=== PATIENT | female | born 1995 | race African-American/Black ===

== ENCOUNTER → 2020-01-16 15:01 | Outpatient (BNVA) | payer SELFPAY | PROVIDERS: PCP Pediatrics; Referring Provider Pediatrics; Visit Provider Hospitalist | DX: Z13.89 Encounter for screening for other disorder (principal) ==

== ENCOUNTER → 2021-12-04 15:17 | Outpatient (BNVA) | payer MEDICAID, SELFPAY | PROVIDERS: PCP Pediatrics; Visit Provider Hospitalist | DX: J44.9 Chronic obstructive pulmonary disease, unspecified (principal); J45.40 Moderate persistent asthma, uncomplicated; R13.11 Dysphagia, oral phase; J01.90 Acute sinusitis, unspecified; J98.4 Other disorders of lung; J40 Bronchitis, not specified as acute or chronic; Z91.89 Other specified personal risk factors, not elsewhere classified | CPT/HCPCS: 99212 ==

== ENCOUNTER 2022-02-25 13:30 | Outpatient (REF) | payer MEDICAID, SELFPAY ==
--- NOTE | ~2022-02-25 | XR_ITS ---
EXAMINATION: XR CHEST CLINICAL INFORMATION: Bronchitis COMPARISON: None TECHNIQUE: Frontal view of the chest was obtained. FINDINGS: Severe biconvex thoracolumbar scoliosis is present. Heart size normal. No infiltrates, effusions or lung masses are seen. Surgical clips are present at the GE junction XR/XR chest 1V IMPRESSION: No acute intrathoracic disease.
== END 2022-02-25 13:31 | disposition home or self-care (01) ==
LOC: HO.HMGCX 13:30
PROVIDERS: Visit Provider Hospitalist
DX: J40 Bronchitis, not specified as acute or chronic (principal)
CPT/HCPCS: 71045

== ENCOUNTER 2023-02-23 14:17 | Outpatient (AMB) | payer MEDICAID, SELFPAY ==
[2023-02-23 14:18] VITALS: BMI 16.8
--- NOTE | 2023-02-23 14:18 | MHC.OFFVIS ---
Intake Vital Signs 02/23/23 14:18 Height 5 ft 1 in Weight 89 lb BMI 16.8 Intake Visit Reasons: Asthma Senior Research Associate Required: No Allergies amoxicillin Allergy (Severe, Verified 02/23/23 14:18) Rash and Hives HPI HPI Comments History of Present Illness Details The patient is a 26-year-old woman with mental retardation. The patient is nonverbal therefore I spoke with her mother. She does have a history of asthma in addition to dysphagia with some aspiration. Due to her aspiration risks she has responded to the chlorhexidine mouthwash. She does have twice a day. In addition to that we maintain her secretions done with the use Robinul. She continues using Singulair for allergies. However, has been known is that she has been sneezing we. Therefore will be reasonable to increase the to the 10mg dose. 12/04/2021 the patient is here for sick visit. She has had significant nasal congestion and postnasal drip. She has been having hard time breathing because the nasal congestion and also episodes of snorting in having more snoring. She has been having hard time with secretions the family is doing everything possible in view of her the dictations to try to help her with that. Do a cough assist device that the use although the patient cannot protect her airway in does have significant dysphagia and aspiration resulting worsening symptoms. The chlorhexidine mouthwash as help with minimizing vaccines. The patient however does not have a subcu available to provide airway clearance. Will request 1 from with the [email or web address]. She has also been using the nebulizer with bronchodilation. Although with her significant congestion she will benefit from budesonide nebulized therapy as well. Will send those to the pharmacy in order for her to start them as well as possible. If the patient is no better she may need to go on some prednisone. The meantime the patient was started on doxycycline which she is currently taking and she did complete a course of prednisone. The patient will need to get a new nebulizer will also request from from her [employer] company. 02/23/2023 the patient has a telehealth visit today. I am speaking to her mom. The patient is nonverbal. the patient has been doing well at home. She has avoided viral infections. The family has been sick in the house so but the been able to quarantine her. She continues using all her respiratory therapy. Although she is not using the budesonide any longer. Will hold off on at this time. But if the patient will need again she can always call and will send it to the pharmacy. Unfortunately she has not been getting supplies for her suction machine and she also has not been getting her aero mask for her nebulizer kit. Therefore, we will request the supplies from her [employer] company at this time. If she does not hear back from [employer] in the next week or 2 she should call the office so we can call them and figure out the status of her supplies. she otherwise continues her current respiratory therapy. Will follow-up in 6 months. [facility] Medical History (Updated 12/04/21 @ 22:59 by Herbert Villegas MD) Bronchitis Sinusitis At risk for aspiration Asthma Dysphagia Social History (Updated 12/04/21 @ 15:35 by DARLIN Garibay) Patient Tobacco Use Status: Never used Tobacco Review of Systems Const Unobtainable due to mental condition Physical Exam Vital Signs: BMI result Body Mass Index 16.8 Const Orientation/consciousness: No patient oriented x3 Limitations: physical limitations and other limitations (non verbal) Neck Neck: Yes trachea midline Neuro General: No patient oriented x3 Assessment & Plan Assessment & Plan (1) Dysphagia: Code(s): R13.10 - Dysphagia, unspecified Qualifiers: Dysphagia type: oral phase Qualified Code(s): R13.11 - Dysphagia, oral phase (2) Asthma: Code(s): J45.909 - Unspecified asthma, uncomplicated Qualifiers: Asthma complication type: uncomplicated Asthma persistence: persistent Asthma severity: moderate Qualified Code(s): J45.40 - Moderate persistent asthma, uncomplicated (3) At risk for aspiration: Code(s): Z91.89 - Other specified personal risk factors, not elsewhere classified (4) Chronic restrictive lung disease: Code(s): J98.4 - Other disorders of lung Plan stop budesonide nebs BID Fluticasone nasal spray Cough assist device Needs a suction machine supplies Needs nebulizer supplpies with aeromask (not able to claude mouth piece) F/U 6 months Medications: Changed From levalbuterol HCl (Xopenex) 1.25 mg (3 mL) inhalation QID 30 days PRN 360 mL 6RF shortness of breath or wheezing J44.9 - Chronic obstructive pulmonary disease, unspecified To levalbuterol HCl 1.25 mg (3 mL) inhalation QID 30 days PRN 360 mL 6RF shortness of breath or wheezing J44.9 - Chronic obstructive pulmonary disease, unspecified Refilled prednisone PO daily; Take 6 tabs daily x 3 days, then 5 tabs x 3 days, then 4 tabs x 3 days, then 3 tabs x 3 days, then 2 tabs daily x 3 days, then 1 tab x 3 days to complete. 18 days 63 tabs 0RF Telehealth Telehealth Location of provider rendering services: practice address Location of patient: address on file Patient Identification confirmed using: Name, : Yes Telehealth method: voice only Patient verbally consented to treatment: Yes Patient verbally consented to billing insurance company: Yes Patient informed of any privacy concerns related to visit: Yes Coding Level of Care Code Tele Est Pt Level 4 (20026) Diagnoses Oral phase dysphagia R13.11 Dysphagia type: oral phase Moderate persistent asthma without complication J45.40 Asthma complication type: uncomplicated Asthma persistence: persistent Asthma severity: moderate At risk for aspiration Z91.89 Chronic restrictive lung disease J98.4 Time Spent (min) 15
== END 2023-02-23 14:31 | disposition home or self-care (01) ==
LOC: HO.HPS 14:17
PROVIDERS: PCP Internal Medicine; Visit Provider Hospitalist
DX: R13.11 Dysphagia, oral phase (principal); J45.40 Moderate persistent asthma, uncomplicated; Z91.89 Other specified personal risk factors, not elsewhere classified; J98.4 Other disorders of lung
CPT/HCPCS: 99213

== ENCOUNTER → 2023-02-23 14:17 | Outpatient (BNVA) | payer MEDICAID, SELFPAY | PROVIDERS: PCP Internal Medicine; Visit Provider Hospitalist ==

== ENCOUNTER 2023-08-24 15:32 | Outpatient (AMB) | payer MEDICAID, SELFPAY ==
[2023-08-24 15:32] VITALS: BMI 17.0
--- NOTE | 2023-08-24 15:32 | MHC.OFFVIS ---
Vital Signs 08/24/23 15:32 Height 5 ft 1 in Weight 90 lb BMI 17.0 Intake Visit Reasons: Asthma follow-up School Traffic Supervisor Required: No Allergies amoxicillin Allergy (Severe, Verified 08/24/23 15:33) Rash and Hives HPI Comments Details: The patient is a 27-year-old woman with mental retardation. The patient is nonverbal therefore I spoke with her mother. She does have a history of asthma in addition to dysphagia with some aspiration. Due to her aspiration risks she has responded to the chlorhexidine mouthwash. She does have twice a day. In addition to that we maintain her secretions done with the use Robinul. She continues using Singulair for allergies. However, has been known is that she has been sneezing we. Therefore will be reasonable to increase the to the 10mg dose. 08/24/2023 I am speaking to her mom. The patient is nonverbal. the patient has been doing well at home. She has avoided viral infections. The family has been sick in the house so but the been able to quarantine her. She continues using all her respiratory therapy. Although she is not using the budesonide any longer. Will hold off on at this time. But if the patient will need again she can always call and will send it to the pharmacy. Unfortunately she has not been getting supplies for her suction machine and she also has not been getting her aero mask for her nebulizer kit. Therefore, we will request the supplies from her [employer] company at this time. If she does not hear back from [employer] in the next week or 2 she should call the office so we can call them and figure out the status of her supplies. she otherwise continues her current respiratory therapy. Will follow-up in 6 months. [facility] Medical History (Updated 12/04/21 @ 22:59 by Herbert Villegas MD) Bronchitis Sinusitis At risk for aspiration Asthma Dysphagia Social History (Updated 12/04/21 @ 15:35 by DARLIN Garibay) Patient Tobacco Use Status: Never used Tobacco Review of Systems Const Unobtainable due to mental condition Physical Exam Vital Signs: BMI result Body Mass Index 17.0 Const Orientation/consciousness: No patient oriented x3 Limitations: physical limitations and other limitations (non verbal) Neuro General: No patient oriented x3 Assessment & Plan Assessment & Plan (1) Asthma: Code(s): J45.909 - Unspecified asthma, uncomplicated Category: Medical Qualifiers: Asthma complication type: uncomplicated Asthma persistence: persistent Asthma severity: moderate Qualified Code(s): J45.40 - Moderate persistent asthma, uncomplicated (2) Dysphagia: Code(s): R13.10 - Dysphagia, unspecified Category: Medical Qualifiers: Dysphagia type: oral phase Qualified Code(s): R13.11 - Dysphagia, oral phase (3) At risk for aspiration: Code(s): Z91.89 - Other specified personal risk factors, not elsewhere classified Category: Medical (4) Chronic restrictive lung disease: Code(s): J98.4 - Other disorders of lung Category: Medical Plan Fluticasone nasal spray Cough assist device Needs a suction machine supplies continue singulair Needs nebulizer supplpies with aeromask (not able to claude mouth piece) F/U 6 months Medications: Changed From montelukast 10 mg PO DAILY 30 tabs 1RF J45.909 - Unspecified asthma, uncomplicated To montelukast 10 mg PO DAILY 90 tabs 3RF 90 days J45.909 - Unspecified asthma, uncomplicated Refilled prednisone PO daily; Take 6 tabs daily x 3 days, then 5 tabs x 3 days, then 4 tabs x 3 days, then 3 tabs x 3 days, then 2 tabs daily x 3 days, then 1 tab x 3 days to complete. 63 tabs 0RF 18 days Coding Level of Care Code Tele Est Pt Level 4 (89066) Diagnoses Moderate persistent asthma without complication J45.40 Asthma complication type: uncomplicated Asthma persistence: persistent Asthma severity: moderate Oral phase dysphagia R13.11 Dysphagia type: oral phase At risk for aspiration Z91.89 Chronic restrictive lung disease J98.4 Time Spent (min) 14
== END 2023-08-25 08:51 | disposition home or self-care (01) ==
LOC: HO.HPS 15:32
PROVIDERS: PCP Registered Nurse; Visit Provider Hospitalist
DX: J45.40 Moderate persistent asthma, uncomplicated (principal); R13.11 Dysphagia, oral phase; J98.4 Other disorders of lung
CPT/HCPCS: 99214

== ENCOUNTER → 2023-08-24 15:32 | Outpatient (BNVA) | payer MEDICAID, SELFPAY | PROVIDERS: PCP Registered Nurse; Visit Provider Hospitalist ==

== ENCOUNTER 2023-12-19 23:28 | Emergency (ER) | payer MEDICAID, SELFPAY ==
--- NOTE | ~2023-12-19 | XR_ITS ---
EXAMINATION: XR CHEST CLINICAL INFORMATION: Cough. Congestion. COMPARISON: Chest radiograph 12/16/2022. TECHNIQUE: Two frontal view of the chest was obtained. FINDINGS: Images are suboptimal secondary to portions of the right upper extremity overlying the thorax. Marked convex rightward scoliosis of the thoracolumbar spine is present. Cardiac silhouette is grossly normal in size. No gross effusions or pneumothoraces identified. No focal pulmonary consolidation identified. Multiple surgical clips are again projected over the left upper abdominal quadrant. XR/XR chest 1V IMPRESSION: *Technically suboptimal examination of the thorax secondary to the right upper extremity projected over the chest. *No acute cardiopulmonary abnormalities identified. *Marked thoracolumbar dextroscoliosis. Electronically signed by: Niles Ramos MD 12/20/2023 12:24 AM JOHN ORELLANA
[2023-12-19 23:30] VITALS: BP 150/99; PULSE 97; RESP 22; TEMP 36.5; O2SAT 96; BMI 18.6
--- NOTE | 2023-12-20 00:38 | ED_ITS ---
HPI - URI/Sore Throat General Chief Complaint: Upper Respiratory Symptoms Stated Complaint: Upper Resp Time Seen by Provider: 12/20/23 00:37 History of Present Illness ED Provider: ENRRIQUE LONG MD HPI Narrative: 28-YEAR-OLD FEMALE UNDERLYING CP CHRONIC RECURRENT RESPIRATORY INFECTIONS. MOTHER WHO IS A RN REPORTS LOW HOME O2 SATS 89-92%. MOTHER HAS GIVEN PREDNISONE DOSE DOXYCYCLINE XOPENEX. SAT IN TRIAGE 95-96% ON ROOM AIR. Mother started the medication on , 4 days ago has noted improvement in the breathing particularly respiratory rate and less use of accessory muscles. Prior to arrival tonight patient took zolpidem mother thought the upper airway noises and subtle respiratory distress prior to bringing her here may have been secondary to some sedation from the zolpidem. No noted fever Related Data Home Medications ?Medication ?Instructions ?Recorded ?Confirmed baclofen 20 mg tablet 20 mg PO DAILY 01/16/20 01/16/20 lamotrigine 150 mg tablet 150 mg PO BID 01/16/20 01/16/20 levetiracetam 1,000 mg tablet 1,500 mg PO BID 01/16/20 01/16/20 (Keppra) lorazepam 0.5 mg tablet 0.5 mg PO DAILY PRN 01/16/20 01/16/20 multivitamin 1 tab PO DAILY 01/16/20 01/16/20 omeprazole 20 mg capsule,delayed 20 mg PO DAILY 01/16/20 01/16/20 release rufinamide 400 mg tablet 800 mg PO BID 01/16/20 01/16/20 Previous Rx's ?Medication ?Instructions ?Recorded [facility] System Monthly Supplies #1 units 04/03/20 chlorhexidine gluconate 0.12 % 15 ml PO BID #946 mL 03/18/21 mouthwash budesonide 0.5 mg/2 mL suspension 0.5 mg (2 mL) inhalation BID 30 12/04/21 for nebulization days #120 mL montelukast 5 mg chewable tablet 5 mg PO BEDTIME #90 tabs 12/09/21 levofloxacin 250 mg/10 mL oral 500 mg (20 mL) PO DAILY 7 days 02/25/22 solution #140 mL glycopyrrolate 1 mg tablet 1 mg PO TID #90 tabs 11/30/22 levalbuterol HCl 1.25 mg/3 mL 1.25 mg (3 mL) inhalation QID PRN 02/23/23 solution for nebulization shortness of breath or wheezing 30 days #360 mL montelukast 10 mg tablet 10 mg PO DAILY 90 days #90 tabs 08/24/23 prednisone 10 mg tablet See Rx Instructions PO DAILY 18 08/24/23 days #63 tabs Allergies Allergy/AdvReac Type Severity Reaction Status Date / Time amoxicillin Allergy Severe Rash and Verified 12/19/23 23:30 Hives [facility] Past Medical History Medical History (Updated 12/20/23 @ 01:14 by Enrrique Long MD) Bronchitis Sinusitis At risk for aspiration Asthma Dysphagia Social History Social History (Updated 12/04/21 @ 15:35 by DARLIN Garibay) Patient Tobacco Use Status: Never used Tobacco Smoked in Last 30 Days: No Use of substances other than those prescribed or required for medical reasons: No Advance Directives: No Advance Directives Information Provided: Yes Do you have a plan to hurt others: No Plan Physical Exam Vital Signs: Vital Signs: Last Vital Signs Temp 97.7 F 12/20/23 01:42 Pulse 97 12/20/23 01:42 Resp 22 H 12/20/23 01:42 BP 150/99 H 12/20/23 01:42 Pulse Ox 96 12/20/23 01:42 O2 Del Method Nasal Cannula 12/20/23 01:42 BMI result Body Mass Index 18.6 Const: Other: EXAM: Gen: Alert, THIN, CONTRACTED, AUDIBLE UPPER AIRWAY SECRETIONS Head: Atraumatic Eyes: Anicteric, Normal conjunctiva. ENT: Moist mucosa, no pallor. ? Neck: Supple. Respiratory: No overt respiratory distress or accessory muscle use. Respiratory rate proximally 22-24. Transmitted upper airway noises. Oral secretions audible. No stridor. Vital signs: See flowsheet Medical Decision Making Medical Decision Making MDM Narrative: [age] female with CP chronic recurrent respiratory issues on doxy and prednisone since , 4 days, with hypoxemia and the transient but im proving respiratory symptoms at home. Limited rotated obscured x-ray with no overt signs of pulmonary infiltrate. Patient is afebrile here saturating mid 90s without significant distress. Lab Data Labs: Lab Results 12/20/23 Range/Units 00:31 Influenza Type A (PCR) NEGATIVE (Negative) Influenza Type B (PCR) NEGATIVE (Negative) RSV RNA Qual (PCR) NEGATIVE (Negative) SARS-CoV-2 RNA (RT-PCR) NEGATIVE (Negative) Independent Interpretation I performed an independent interpretation of an: Plain X-Ray and Ultrasound Interpretation: Limited due to rotation obstruction with right upper extremity visible portions of the lung no infiltrate EMERGENCY ULTRASOUND INTERPRETATION-Limited THORACIC [This study was ordered, performed, and interpreted by myself. The study revea ls: Impression:NO PATHOLOGIC B LINES OR PULMONARY EFFUSION/CONSOLIDATION [Emergent Cardiac for Indication: DYSPNEA Views Used: 6 VIEWS KAYLEIGH CHEST THORAC: NO FOCAL CONSOLIDATION, NO PATHOLOGIC B LINES, NO EFFUSION Performed by: MD Mercedes Images were stored on EMR through [email or web address] image archive software. CPT:44010] Discharge Plan Discharge Clinical Impression: Aspiration into airway Patient Disposition: Home, Self-Care Instructions: Aspiration Precautions (ED) Additional Instructions: DISCHARGE DIAGNOSES: Suspected aspiration into the lungs verses zolpidem induced sedation transient respiratory distress HISTORY OF PRESENTATION: Transient hypoxia at home. EMERGENCY DEPARTMENT COURSE,TESTS, TREATMENTS: While in the ED today Radha had a limited x-ray performed with no obvious signs of pneumonia. We also performed an ultrasound of the chest. You declined lab work which we feel is reasonable. Her O2 sat is 95-96% on room air at triage and she had no favor DISCHARGE MEDICATIONS: ?[We have made no changes to your regular medication regimen] FOLLOW-UP: ?Call your primary or general physician soon as possible to discuss your symptoms, your ED visit and to discuss follow up plans INSTRUCTIONS ?& RETURN PRECAUTIONS: If any symptoms change first call your primary physician, if it is after-hours your primary doctors office should have a provider denier control operator you can speak with. If the symptoms are severe or very concerning to you then call 911 or return to the ED. Enrrique Long MD Emergency Physician [facility] Prescriptions: No Action (DME) VitalCough System Monthly Supplies See Rx Instructions .Route .MEDSUPPLY Qty: 1 12RF Rx Instructions: Protocol for VitalCough System, 2 treatments per day, +20cm of H2O inhale pressure, -20cm H2O exhale pressure, 4 breaths, 4 cycles chlorhexidine gluconate 0.12 % mouthwash 15 ml PO BID Qty: 946 1RF montelukast 5 mg tablet,chewable 5 mg PO BEDTIME Qty: 90 0RF levofloxacin 250 mg/10 mL solution 500 mg PO DAILY 7 Days Qty: 140 0RF glycopyrrolate 1 mg tablet 1 mg PO TID Qty: 90 0RF rufinamide 400 mg tablet 800 mg PO BID Rx Instructions: give with meal/snack baclofen 20 mg tablet 20 mg PO DAILY lamotrigine 150 mg tablet 150 mg PO BID levetiracetam [Keppra] 1,000 mg tablet 1,500 mg PO BID omeprazole 20 mg capsule,delayed release(DR/EC) 20 mg PO DAILY multivitamin Tablet 1 tab PO DAILY lorazepam 0.5 mg tablet 0.5 mg PO DAILY PRN budesonide 0.5 mg/2 mL suspension for nebulization 0.5 mg inhalation BID 30 Days Qty: 120 11RF levalbuterol HCl 1.25 mg/3 mL solution for nebulization 1.25 mg inhalation QID PRN (Reason: shortness of breath or wheezing) 30 Days Qty: 360 6RF prednisone 10 mg tablet See Rx Instructions PO DAILY 18 Days Qty: 63 0RF Rx Instructions: PO daily; Take 6 tabs daily x 3 days, then 5 tabs x 3 days, then 4 tabs x 3 days, then 3 tabs x 3 days, then 2 tabs daily x 3 days, then 1 tab x 3 days to complete. montelukast 10 mg tablet 10 mg PO DAILY 90 Days Qty: 90 3RF Interventions: ED Discharge Assessment Last Done: 12/20/23 01:42 Discharge Date/Time: 12/20/23 01:43 Print Language: Lao
[2023-12-20 01:12] LABS: Influenza A PCR NEGATIVE (Negative); Influenza B PCR NEGATIVE (Negative); Resp Syncy Virus RNA Qual PCR NEGATIVE (Negative); SARS COV2 PCR INHOUSE NEGATIVE (Negative)
--- NOTE | 2023-12-20 01:39 | PC.NURSE ---
pt remaining in wheelchair on arrival per mother request. Pt with no obvious respiratory distress at this time.
[2023-12-20 01:42] VITALS: BP 150/99; PULSE 97; RESP 22; TEMP 36.5; O2SAT 96
== END 2023-12-20 01:43 | disposition home or self-care (01) ==
PROVIDERS: Emergency Provider Emergency Medicine; PCP Registered Nurse
DX: R09.02 Hypoxemia (principal); R05.9 Cough, unspecified; R07.9 Chest pain, unspecified; Z03.818 Encounter for observation for suspected exposure to other biological agents ruled out; Z79.899 Other long term (current) drug therapy
CPT/HCPCS: 0241U; 71045; 99283; 99284

== ENCOUNTER 2023-12-24 13:08 | Outpatient (AMB) | payer MEDICAID, SELFPAY ==
--- NOTE | 2023-12-24 13:21 | A.OFFVIS_ITS ---
Vital Signs 12/24/23 13:27 Height 5 ft 1 in Weight 90 lb BMI 17.0 Pulse 103 H Pulse Source Doppler Pulse Oximetry (%) 96 Oxygen Delivery Method Room Air Intake Visit Reasons: Shortness of Breath/Cough/Dr. Villegas PT Intake Note: Wheelchair bound/ unable to obtain BP Allergies amoxicillin Allergy (Severe, Verified 12/19/23 23:30) Rash and Hives HPI HPI Shortness of Breath/Cough/Dr. Villegas PT: Details: 28-year-old lady with underlying developmental delay and asthma with prior episodes of aspiration, usually followed by Dr. Villegas, now presents complaining approximately 1 week history of cough and sputum production that started with what appears to have been an aspiration event. She was empirically treated with a doxycycline and prednisone with no significant improvement. [facility] Medical History (Updated 12/24/23 @ 14:10 by Jim Box MD) Bronchitis Sinusitis At risk for aspiration Asthma Dysphagia Social History (Updated 12/04/21 @ 15:35 by Maribel Souza Elsy) Patient Tobacco Use Status: Never used Tobacco Review of Systems Resp Reports cough, Reports excessive phlegm production and Reports other (Rales) Physical Exam Vital Signs: Last Vital Signs Pulse 103 H 12/24/23 13:27 Pulse Ox 96 12/24/23 13:27 Oxygen Delivery Method Room Air 12/24/23 13:27 BMI result Body Mass Index 17.0 Const General: awake Resp Effort & Inspection: normal respiratory effort Auscultation: rales (Bilateral) Cardio Rate: tachycardic Rhythm: regular rhythm Heart sounds: no murmurs Assessment & Plan Assessment & Plan (1) Pulmonary aspiration: Code(s): T17.900A - Unspecified foreign body in respiratory tract, part unspecified causing asphyxiation, initial encounter Category: Medical Plan: Appears to have had another aspiration event with residual pneumonitis versus pneumonia. Will treat with a course of Levaquin. Medications: Refilled levofloxacin 500 mg (20 mL) PO DAILY 140 mL 0RF 7 days Coding Level of Care Code Est Pt Level 3 (02258) Complex EM visit Add On G2211 Diagnoses Pulmonary aspiration T17.900A
[2023-12-24 13:27] VITALS: PULSE 103; O2SAT 96; BMI 17.0
== END 2023-12-24 13:47 | disposition home or self-care (01) ==
PROVIDERS: PCP Registered Nurse; Visit Provider Internal Medicine Pulmonary Disease
DX: T17.900A Unspecified foreign body in respiratory tract, part unspecified causing asphyxiation, initial encounter (principal)
CPT/HCPCS: 99213

== ENCOUNTER → 2023-12-24 13:08 | Outpatient (BNVA) | payer MEDICAID, SELFPAY | PROVIDERS: PCP Registered Nurse; Visit Provider Internal Medicine Pulmonary Disease | DX: T17.900A Unspecified foreign body in respiratory tract, part unspecified causing asphyxiation, initial encounter (principal) | CPT/HCPCS: 99212 ==

== ENCOUNTER 2023-12-31 13:06 | Outpatient (AMB) | payer MEDICAID, SELFPAY ==
[2023-12-31 13:14] VITALS: PULSE 104; O2SAT 97
--- NOTE | 2023-12-31 13:14 | MHC.OFFVIS ---
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 The patient is nonverbal therefore I spoke with her mother. She does have a history of asthma in addition to dysphagia with some aspiration. Due to her aspiration risks she has responded to the chlorhexidine mouthwash. She does have twice a day. In addition to that we maintain her secretions done with the use Robinul. She continues using Singulair for allergies. However, has been known is that she has been sneezing we. Therefore will be reasonable to increase the to the 10mg dose. 08/24/2023 I am speaking to her mom. The patient is nonverbal. the patient has been doing well at home. She has avoided viral infections. The family has been sick in the house so but the been able to quarantine her. She continues using all her respiratory therapy. Although she is not using the budesonide any longer. Will hold off on at this time. But if the patient will need again she can always call and will send it to the pharmacy. Unfortunately she has not been getting supplies for her suction machine and she also has not been getting her aero mask for her nebulizer kit. Therefore, we will request the supplies from her [employer] company at this time. If she does not hear back from Gerald in the next week or 2 she should call the office so we can call them and figure out the status of her supplies. she otherwise continues her current respiratory therapy. Will follow-up in 6 months. 12/31/2023 the patient is here for a sick visit. Apparently she started developing worsening respiratory symptoms beginning of the month. She went to urgent care. There she had an x-ray which was limited. She was treated and released. Her symptoms are no better significant congestion episodes of hypoxia. The patient brought to the office. She was evaluated. She was started on Levaquin and she had completed a course of steroids. Which point she did feel better but still congested. Then her primary care doctor center another course of prednisone 50 mg for 5 days. Now she has a taper. She started to feel better after the additional prednisone. She does need help with her chest congestion. The patient does have significant physical limitation and also limited cognition. Therefore a percussion wrap will help her loosen up the mucus to clear her secretions to minimize infection. Will request a percussion device from her [employer] company to help with secretions. In addition to that she has a suction machine. For some reason she is not getting supplies from her [employer] company. Does become a big issue. I am going to have to give him another call to make sure that they give her the adequate supplies for her suction machine. In addition to that the patient has been irritable. Likely from the prednisone. Will have her get blood work including a venous gas to assess her CO2. In addition to other blood work. [facility] Medical History (Updated 12/24/23 @ 14:10 by Jim Box MD) Bronchitis Sinusitis At risk for aspiration Asthma Dysphagia Social History (Updated 12/04/21 @ 15:35 by DARLIN Garibay) Patient Tobacco Use Status: Never used Tobacco Review of Systems Const Unobtainable due to mental condition Physical Exam Vital Signs: Last Vital Signs Pulse 104 H 12/31/23 13:14 Pulse Ox 97 12/31/23 13:14 Oxygen Delivery Method Room Air 12/31/23 13:14 Const Orientation/consciousness: No patient oriented x3 Limitations: physical limitations and other limitations (non verbal) Neuro General: No patient oriented x3 Assessment & Plan Assessment & Plan (1) Asthma: Code(s): J45.909 - Unspecified asthma, uncomplicated Category: Medical Qualifiers: Asthma complication type: uncomplicated Asthma persistence: persistent Asthma severity: moderate Qualified Code(s): J45.40 - Moderate persistent asthma, uncomplicated (2) Dysphagia: Code(s): R13.10 - Dysphagia, unspecified Category: Medical Qualifiers: Dysphagia type: oral phase Qualified Code(s): R13.11 - Dysphagia, oral phase (3) At risk for aspiration: Code(s): Z91.89 - Other specified personal risk factors, not elsewhere classified Category: Medical (4) Chronic restrictive lung disease: Code(s): J98.4 - Other disorders of lung Category: Medical Plan Fluticasone nasal spray start hypertonic saline 3% BID nebs for CPT requesting percussion wrap to her her with her secretions with her recurrent infections. Should use while using the nebulizer Needs a suction machine supplies continue singulair Needs nebulizer supplpies with aeromask (not able to claude mouth piece) bloodwork F/U 6 months Orders: Orders Venous Blood Gas 12/31/23 J98.4 - Other disorders of lung, T17.900A - Unspecified foreign body in respiratory tract, part unspecified causing asphyxiation, initial encounter Immunoglobulins,IgG IgA IgM 12/31/23 J98.4 - Other disorders of lung, T17.900A - Unspecified foreign body in respiratory tract, part unspecified causing asphyxiation, initial encounter Erythrocyte Sedimentation Rate 12/31/23 J98.4 - Other disorders of lung, T17.900A - Unspecified foreign body in respiratory tract, part unspecified causing asphyxiation, initial encounter Overnight Pulse Oximetry 12/31/23 J98.4 - Other disorders of lung, T17.900A - Unspecified foreign body in respiratory tract, part unspecified causing asphyxiation, initial encounter Immunoglobulin G Subclasses 12/31/23 J98.4 - Other disorders of lung, T17.900A - Unspecified foreign body in respiratory tract, part unspecified causing asphyxiation, initial encounter Immunoglobulin E 12/31/23 J98.4 - Other disorders of lung, T17.900A - Unspecified foreign body in respiratory tract, part unspecified causing asphyxiation, initial encounter Complete Blood Count Auto Diff 12/31/23 J98.4 - Other disorders of lung, T17.900A - Unspecified foreign body in respiratory tract, part unspecified causing asphyxiation, initial encounter Medications: New sodium chloride 3% 4 mL inhalation BID 30 days 240 mL 11RF levofloxacin 500 mg PO DAILY 14 days 14 tabs 1RF Refilled prednisone PO daily; Take 6 tabs daily x 3 days, then 5 tabs x 3 days, then 4 tabs x 3 days, then 3 tabs x 3 days, then 2 tabs daily x 3 days, then 1 tab x 3 days to complete. 18 days 63 tabs 1RF Coding Level of Care Code Est Pt Level 4 (75095) Complex EM visit Add On G2211 Diagnoses Moderate persistent asthma without complication J45.40 Asthma complication type: uncomplicated Asthma persistence: persistent Asthma severity: moderate Oral phase dysphagia R13.11 Dysphagia type: oral phase At risk for aspiration Z91.89 Chronic restrictive lung disease J98.4 Time Spent (min) 16
== END 2023-12-31 14:01 | disposition home or self-care (01) ==
PROVIDERS: PCP Registered Nurse; Visit Provider Hospitalist
DX: J45.40 Moderate persistent asthma, uncomplicated (principal); R13.11 Dysphagia, oral phase; Z91.89 Other specified personal risk factors, not elsewhere classified; J98.4 Other disorders of lung
CPT/HCPCS: 99214

== ENCOUNTER 2023-12-31 13:06 | Outpatient (REF) | payer MEDICAID, SELFPAY ==
[2023-12-31 14:08] LABS: Venous Blood Gas Refer to POC result
[2023-12-31 14:16] LABS: VBG Base Excess 1.1 mmol/L; VBG HCO3 25 mmol/L (22-26); VBG pCO2 39 mmHg; VBG pH 7.41 (7.32-7.43); VBG pO2 71 mmHg
[2023-12-31 14:51] LABS: Basophils Percent Auto 0.4 % (0-2); Eosinophils Absolute Auto 0.1 X10*3/uL (0.0-0.4); Eosinophils Percent Auto 1.3 % (0-4); Hemoglobin 14.1 g/dl (12.0-16.0); Imm Gran Abs Auto 0.02 X10*3/uL (0.00-0.03); Imm Gran Pct Auto 0.3 % (0.0-0.4); Lymphocytes Absolute Auto 4.8 X10*3/uL (1.2-4.9); Lymphocytes Percent Auto 60.7 % (20-40); MANUAL DIFF FLAG SCAN; Mean Corpuscular Hemoglobin 23.3 pg (27.0-33.0); Mean Corpuscular Volume 72.6 fL (80.0-98.0); Mean Platelet Volume 9.1 fL (9.4-12.3); Monocytes Absolute Auto 0.5 X10*3/uL (0.1-1.2); Monocytes Percent Auto 6.4 % (2-11); Neutrophils Absolute Auto 2.4 x10*3/uL (2.0-8.3); Neutrophils Percent Auto 30.9 % (45-73); Platelet Count 518 X10*3/uL (160-400); Red Blood Count 6.06 X10*6/uL (4.20-5.50); Red Cell Distribution Width 14.9 % (11.0-16.0); SCAN SMEAR FLAG 1; White Blood Count 7.8 X10*3/uL (4.8-10.8)
[2023-12-31 15:30] LABS: Erythrocyte Sedimentation Rate 2 MM/HR (0-20)
[2023-12-31 17:23] LABS: SLIDE REVIEW VERIFIED
[2024-01-03 08:04] LABS: IgA 482 mg/dL (47-310); IgG 1673 mg/dL (600-1640); IgM 153 mg/dL (50-300)
[2024-01-03 16:02] LABS: Immunoglobulin G Subclass 1 766 mg/dL (382-929); Immunoglobulin G Subclass 2 445 mg/dL (241-700); Immunoglobulin G Subclass 3 106 mg/dL (22-178); Immunoglobulin G Total 1470 mg/dL (600-1640)
[2024-01-04 22:43] LABS: Immunoglobulin E 38 kU/L (<OR=114)
== END 2023-12-31 13:07 | disposition home or self-care (01) ==
LOC: HO.LAB 13:06
PROVIDERS: PCP Registered Nurse; Visit Provider Hospitalist
DX: J98.4 Other disorders of lung (principal); T17.900A Unspecified foreign body in respiratory tract, part unspecified causing asphyxiation, initial encounter; J45.40 Moderate persistent asthma, uncomplicated; R13.11 Dysphagia, oral phase; Z91.89 Other specified personal risk factors, not elsewhere classified
CPT/HCPCS: 36415; 82784; 82785; 82803; 85025; 85652; 99212

== ENCOUNTER 2024-08-24 16:36 | Outpatient (AMB) | payer OTHER, SELFPAY ==
--- NOTE | 2024-08-24 16:41 | MHC.PC.OV ---
Vital Signs 08/24/24 16:42 BMI Reason not done Patient refused/unable BP 118/78 Blood Pressure Location Rt brachial Position Sitting Intake Visit Reasons: Establish care, has feeding tube needs meds Optical Element Coater Required: No Accompanied by: parents Allergies amoxicillin Allergy (Severe, Verified 08/24/24 17:13) Rash and Hives Medication List - Last Reconciled 08/24/24 by Katherine Hernández MD acetaminophen 500 mg PO Q6H PRN ascorbic acid (vitamin C) 1,000 mg PO DAILY baclofen 20 mg PO DAILY budesonide 0.5 mg (2 mL) inhalation BID 30 days cetirizine (All Day Allergy (cetirizine)) 10 mg PO DAILY PRN clonazepam mg PO fluticasone propionate 50 mcg/actuation (Allergy Relief (fluticasone)) 2 sprays intranasal DAILY glycopyrrolate 1 mg PO TID ibuprofen 400 mg PO Q8H PRN lamotrigine 150 mg PO BID levalbuterol HCl 1.25 mg (3 mL) inhalation QID PRN 30 days levetiracetam 1,500 mg PO BID levofloxacin 500 mg PO DAILY 14 days montelukast 10 mg PO DAILY 90 days multivitamin 1 tab PO DAILY omeprazole 20 mg PO DAILY rufinamide 800 mg PO BID sennosides (senna) 17.2 mg PO BID sodium chloride 3% 4 mL inhalation BID 30 days [VitalCough System Monthly Supplies Protocol for VitalCough System, 2 treatments per day, +20cm of H2O inhale pressure, -20cm H2O exhale pressure, 4 breaths, 4 cycles ] zolpidem 10 mg PO BEDTIME PRN Tobacco use date assessed: 08/24/24 Dental Screening Dental Screen Date: 08/24/24 Did you have a dental visit in the last 12 months?: No Did you have a dental problem in the last 6 months where you did not have access to dental care?: No Was dental information given to patient?: Patient has dentist HPI HPI Comments History of Present Illness Details This is a 28-year-old female with 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 She has a feeding tube and use peptamen 1250 calories per day. She is in a wheelchair and has seizures follow by [facility]. She is nonverbal and does not respond to commands. She has GERD stable with medications. She does have few small seizures daily. Has microcephaly since . Chronic restrictive lung disease due to scoliosis is follow by pulmonology. [facility] Medical History (Updated 08/24/24 @ 17:42 by Katherine Hernández MD) Bronchitis Sinusitis At risk for aspiration Asthma Dysphagia Surgical History History of Chelsy fundoplication Family History Mother No problems noted. Father No problems noted. Social History Housing: House Alcohol intake: never Patient Tobacco Use Status: Never used Tobacco e-Cigarette/Vaping Use: Never Used Second Hand Smoke Exposure: No service: No Current occupational status: disabled Cognitive needs: Yes Hearing needs: No Vision needs: No Questionnaire PHQ-9 Over the last 2 weeks, how often have you been bothered by any of the following problems? 1. Little interest or pleasure in doing things: not at all 2. Feeling down, depressed, or hopeless: not at all 3. Trouble falling or staying asleep, or sleeping too much: not at all 4. Feeling tired or having little energy: not at all 5. Poor appetite or overeating: not at all 6. Feeling bad about yourself - or that you are a failure or have let yourself or your family down: not at all 7. Trouble concentrating on things, such as reading the newspaper or watching television: not at all 8. Moving or speaking so slowly that other people could have noticed. Or the opposite - being so fidgety or restless that you have been moving around a lot more than usual: not at all 9. Thoughts that you would be better off or of hurting yourself in some way: not at all Total score: 0 Depression Screening Interpretation: Negative Depression Screening Done: Yes 89855 - PHQ-9 Billing: Yes Source: Developed by Drs. Nahun Mayes, Anali Jones, Jim Chester and colleagues, with an educational sue from [employer]. Thrive Questionnaire Date Thrive assessed: 08/24/24 I am a: Parent/Caregiver What is your living situation today?: I have a steady place to live Within the past 12 months, did the food you bought not last and you didn't have the money to get more?: I choose not to answer this question Within the past 12 months, did you worry whether your food would run out before you got money to buy more?: I choose not to answer this question Do you have trouble paying for medicines?: I choose not to answer this question Do you have trouble getting transportation to medical appointments?: I choose not to answer this question Do you have trouble paying your heating and electricity bill?: I choose not to answer this question Do you have trouble taking care of your child, family member or friend?: I choose not to answer this question Do you have trouble with day-to-day activities such as bathing, preparing meals, shopping, managing finances, etc.?: I choose not to answer this question Are you currently unemployed and looking for a job?: I choose not to answer this question Are you interested in more education?: I choose not to answer this question Please select the resources that you would like help with: None Currently or been in a relationship where the following occur: No concerns reported THRIVE Score: 0 AUDIT C Alcohol Use Questionnaire (AUDIT-C) 1. How often do you have a drink containing alcohol?: Never Total Score: 0 Score Reviewed/Action Taken: No SUSY-7 AMB Questionnaire SUSY-7 Date SUSY - 7 assessed: 08/24/24 Feeling nervous, anxious, or on edge: 0 = Not at all Not being able to stop or control worryin = Not at all Worrying too much about different things: 0 = Not at all Trouble relaxin = Not at all Being so restless that it is hard to sit still: 0 = Not at all Becoming easily annoyed or irritable: 0 = Not at all Feeling afraid as if something awful might happen: 0 = Not at all Total SUSY-7 score (0-4 normal; 5-9 mild; 10-14 moderate; 15-21 severe): 0 Source: Developed by Drs. Nahun Mayes, Anali Jones, Jim Chester and colleagues, with an educational sue from [employer]. SUSY-7 Assessment Billing SUSY-7 Assessment Tool: SUSY-7 Assessment 25049 Review of Systems Const All systems reviewed & are unremarkable except as noted in HPI and below Card Denies chest pain at rest, Denies chest pain with activity, Denies edema, Denies irregular heart rhythm, Denies claudication, Denies dyspnea, Denies dyspnea on exertion, Denies orthopnea, Denies paroxysmal nocturnal dyspnea and Denies slow heart rate Resp Denies cough, Denies dyspnea and Denies dyspnea on exertion GI Denies abdominal pain, Denies change in bowel habits, Denies excessive flatus, Denies nausea and Denies vomiting Physical exam (Primary Care) Vital Signs: Last Vital Signs BP 118/78 08/24/24 16:42 Tobacco/Smoking Status: Tobacco use Status Tobacco use date assessed 08/24/24 08/24/24 17:03 Patient Tobacco Use Status Never used Tobacco 08/24/24 17:01 e-Cigarette/Vaping Use Never Used 08/24/24 17:03 PHQ-9: PHQ-9 Score PHQ-9: Total score 0 08/24/24 17:12 Depression Screening Interpretation: Negative Thrive Assessment: Date of Thrive Assessment Date Thrive assessed 08/24/24 08/24/24 16:43 Currently or been in a relationship where the following occur: No concerns reported Const Limitations: wheelchair Resp Effort & Inspection: decreased respiratory effort Auscultation: clear to auscultation bilaterally Cardio Jugular venous distension: no JVD Rate: regular rate Rhythm: regular rhythm Heart sounds: S1 normal heart sound present and S2 normal heart sound present GI Other: feeding tube in place Inspection: Yes normal to inspection Palpation (GI): Soft to palpation and nontender Auscultation: normal bowel sounds Extrem Other: both arms contracted Coding Level of Care Code New Pt Level 4 (82989) Complex EM visit Add On G2211 Diagnoses Spastic quadriplegic cerebral palsy G80.0 Cerebral palsy type: spastic quadriplegic GERD without esophagitis K21.9 Seizures R56.9 Microcephaly Q02 Chronic restrictive lung disease J98.4 Additional Codes PHQ-9 - 71614 - PHQ-9 Billing: Yes ([id number]) SUSY-7 Assessment Billing - SUSY-7 Assessment Tool: SUSY-7 Assessment 16913 ([id number]) Time Spent (min) 25 Assessment & Plan Assessment & Plan (1) Cerebral palsy: Code(s): G80.9 - Cerebral palsy, unspecified Category: Medical Qualifiers: Cerebral palsy type: spastic quadriplegic Qualified Code(s): G80.0 - Spastic quadriplegic cerebral palsy (2) GERD without esophagitis: Code(s): K21.9 - Gastro-esophageal reflux disease without esophagitis Category: Medical (3) Seizures: Code(s): R56.9 - Unspecified convulsions Category: Medical (4) Microcephaly: Code(s): Q02 - Microcephaly Category: Medical (5) Chronic restrictive lung disease: Code(s): J98.4 - Other disorders of lung Category: Medical Plan Continue current meds. Follow-up with [facility] for your seizures. Continue the use of wheelchair due to quadriplegic spastic cerebral palsy. Has dysphagia and should continue the use of feeding tube. Follow-up with pulmonology for chronic restrictive lung disease. Medications: New clonazepam 1 mg PO .once a day 30 tabs 0RF 30 days medroxyprogesterone (Depo-Provera) 150 mg IM [id number] 1 mL 3RF 90 days zolpidem 10 mg PO BEDTIME PRN 30 tabs 0RF insomnia 30 days
[2024-08-24 16:42] VITALS: BP 118/78
== END 2024-08-24 17:39 | disposition home or self-care (01) ==
LOC: HO.HMCH 16:37
PROVIDERS: PCP Internal Medicine; Visit Provider Internal Medicine
DX: G80.0 Spastic quadriplegic cerebral palsy (principal); K21.9 Gastro-esophageal reflux disease without esophagitis; R56.9 Unspecified convulsions; Q02 Microcephaly; J98.4 Other disorders of lung

== ENCOUNTER → 2024-08-24 16:36 | Outpatient (BNVA) | payer OTHER, SELFPAY | PROVIDERS: PCP Internal Medicine; Visit Provider Internal Medicine | DX: G80.0 Spastic quadriplegic cerebral palsy (principal); F79 Unspecified intellectual disabilities; K21.9 Gastro-esophageal reflux disease without esophagitis; R56.9 Unspecified convulsions; Q02 Microcephaly; J98.4 Other disorders of lung; Z93.1 Gastrostomy status; Z79.899 Other long term (current) drug therapy | CPT/HCPCS: 96127; 99202 ==